=== PATIENT | male | born 1965 | race Caucasian/White ===

== ENCOUNTER 2022-04-03 11:40 | Outpatient (CLI) | payer BC | END 2022-04-03 11:41 | disposition home or self-care (01) | LOC: BICRAD 11:40 | PROVIDERS: ATTEND Physical Therapist | DX: M25.512 Pain in left shoulder (principal); M25.511 Pain in right shoulder; M54.2 Cervicalgia; M47.892 Other spondylosis, cervical region; Z98.1 Arthrodesis status | CPT/HCPCS: 72040 ==